=== PATIENT | male | born 1990 | race Two or more races ===

== ENCOUNTER 2018-05-11 21:47 | Emergency (ER) | payer SELFPAY ==
[~2018-05-11] VITALS: Ht 185.4 cm; Wt 111.0 kg
[2018-05-12] MEDS ORDERED: TETANUS, DIPHTHERIA, PERTUSSIS VAC/PF 0.5ML (>7YR OLD) IM ONE (00:15)
[2018-05-12] MEDS ORDERED: BACITRACIN ZINC OINT UDPKT TOP ONE (00:15)
[2018-05-12] MEDS ORDERED: ACETAMINOPHEN 325MG TABLET PO ONE (00:15)
[2018-05-12 02:34] VITALS: BP 136/88
== END 2018-05-12 05:37 | disposition home or self-care (01) ==
LOC: ER 05-12 05:37
DX: S01.01XA Laceration without foreign body of scalp, initial encounter (principal); S40.211A Abrasion of right shoulder, initial encounter; S00.81XA Abrasion of other part of head, initial encounter; S60.511A Abrasion of right hand, initial encounter; Y04.0XXA Assault by unarmed brawl or fight, initial encounter; Y00.XXXA Assault by blunt object, initial encounter; Y93.89 Activity, other specified; Y92.89 Other specified places as the place of occurrence of the external cause
CPT/HCPCS: 12013; 73130; 90471; 90715; 99284; X7700; Z7610